=== PATIENT | female | born 1940 ===

== ENCOUNTER → 2021-10-08 13:01 | Outpatient (BNVA) | payer MEDICARE, SELFPAY | PROVIDERS: PCP Internal Medicine; Visit Provider Psychiatry & Neurology Neurology | DX: F03.90 Unspecified dementia, unspecified severity, without behavioral disturbance, psychotic disturbance, mood disturbance, and anxiety (principal); F32.A Depression, unspecified; Z79.899 Other long term (current) drug therapy | CPT/HCPCS: 99212 ==

== ENCOUNTER → 2022-04-03 12:56 | Outpatient (BNVA) | payer MEDICARE, SELFPAY | PROVIDERS: PCP Internal Medicine; Visit Provider Psychiatry & Neurology Neurology | DX: F03.90 Unspecified dementia, unspecified severity, without behavioral disturbance, psychotic disturbance, mood disturbance, and anxiety (principal); F32.A Depression, unspecified | CPT/HCPCS: 99212 ==

== ENCOUNTER → 2022-10-31 11:08 | Outpatient (BNVA) | payer MEDICARE, SELFPAY | PROVIDERS: PCP Internal Medicine; Visit Provider Psychiatry & Neurology Neurology | DX: F03.90 Unspecified dementia, unspecified severity, without behavioral disturbance, psychotic disturbance, mood disturbance, and anxiety (principal); F32.A Depression, unspecified | CPT/HCPCS: 99212 ==

== ENCOUNTER 2023-05-06 09:02 | Outpatient (AMB) | payer MEDICARE, SELFPAY ==
--- NOTE | 2023-05-06 09:16 | MHC.OFFVIS ---
Intake Vital Signs 05/06/23 09:21 Height 5 ft 6 in Weight 137 lb 8 oz BMI 22.2 BP 118/60 Blood Pressure Location Rt brachial Pulse 63 Pulse Source Pulse Oximeter Pulse Oximetry (%) 97 Intake Visit Reasons: 6m follow up-lvm Allergies latex Allergy (Mild, Verified 10/31/22 11:13) Rash Medication List - Last Reconciled 05/06/23 by Nory Marquez MD estradiol 0.5 mg PO DAILY levothyroxine 75 mcg PO DAILY lovastatin 20 mg PO DAILY memantine (Namenda XR) 28 mg PO DAILY 90 days plecanatide (Trulance) 3 mg PO DAILY quetiapine 1/ 2to 1 tab bid orally 2 times a day PRN for agitation sertraline 75 mg (1.5 x 50 mg) PO DAILY 90 days HPI HPI Comments History of Present Illness Details 82-year-old female comes for follow-up of her memory loss dementia and confusion. She is accompanied by her son who helps with history. She is worse now. she is on namenda XR 28 mg qd She does not drive She is independent in all her activities of daily living. Mood has stabilized she lives in an extension portion of her sons house . She is more anxious when she is alone .The auditory hallucinations- hearing music is less now. Her depression is stable. She has history of OCD and she still has a lot of obsessions and compulsions. She rarely goes out to socialize. She walks in the house but does not exercise regularly. She denies any lightheadedness or dizziness. Sleep is good. Paranoid thoughts are better. She can become irritable is sometimes nasty with her care givers. [facility] Medical History Thyroid disease Dementia Anxiety Depression OCD (obsessive compulsive disorder) Cancer Arthritis Family History Father Heart disease Mother Thyroid disease Depression Social History Alcohol intake: never Patient Tobacco Use Status: Never used Tobacco Assessment & Plan Assessment & Plan (1) Dementia: Code(s): F03.90 - Unspecified dementia, unspecified severity, without behavioral disturbance, psychotic disturbance, mood disturbance, and anxiety (2) Depression: Code(s): F32.A - Depression, unspecified Plan Continue memantine XR to 28 mg qd Social activities- participate in senior center activities. Continue sertraline 75 mg qd start quetipaine 25 mg 1/2 tab q 4pm Medications: Discontinued donepezil Discontinued Reason: Patient no longer taking 5 mg PO DAILY 30 tabs 0RF Coding Level of Care Code Est Pt Level 4 (55809) Diagnoses Dementia F03.90 Depression F32.A
[2023-05-06 09:21] VITALS: BP 118/60; PULSE 63; O2SAT 97; BMI 22.2
== END 2023-05-06 10:10 | disposition home or self-care (01) ==
PROVIDERS: Visit Provider Psychiatry & Neurology Neurology
DX: F03.90 Unspecified dementia, unspecified severity, without behavioral disturbance, psychotic disturbance, mood disturbance, and anxiety (principal); F32.A Depression, unspecified
CPT/HCPCS: 99214

== ENCOUNTER → 2023-05-06 09:02 | Outpatient (BNVA) | payer MEDICARE, SELFPAY | PROVIDERS: Visit Provider Psychiatry & Neurology Neurology | DX: F03.90 Unspecified dementia, unspecified severity, without behavioral disturbance, psychotic disturbance, mood disturbance, and anxiety (principal); F32.A Depression, unspecified | CPT/HCPCS: 99212 ==

== ENCOUNTER 2023-06-05 14:01 | Outpatient (AMB) | payer MEDICARE, SELFPAY ==
--- NOTE | 2023-06-05 14:07 | MHC.OFFVIS ---
Intake Vital Signs 06/05/23 14:13 Height 5 ft 6 in Weight 132 lb 4 oz BMI 21.3 BP 125/67 Blood Pressure Location Rt brachial Position Sitting Pulse 68 Pulse Source Pulse Oximeter Pulse Oximetry (%) 98 Oxygen Delivery Method Room Air Intake Visit Reasons: Chronic Neck, Shoulder, and Back Pain [employer] Required: No Accompanied by: Son Allergies latex Allergy (Mild, Verified 06/05/23 14:21) Rash amoxicillin Allergy (Unknown, Verified 06/05/23 14:21) Unknown carbamazepine [From Tegretol] Allergy (Unknown, Verified 06/05/23 14:21) Unknown celecoxib [From Celebrex] Allergy (Unknown, Verified 06/05/23 14:21) Unknown nortriptyline Allergy (Unknown, Verified 06/05/23 14:21) Unknown piroxicam [From Feldene] Allergy (Unknown, Verified 06/05/23 14:21) Unknown sulindac [From Clinoril] Allergy (Unknown, Verified 06/05/23 14:21) Unknown tramadol Allergy (Unknown, Verified 06/05/23 14:21) Unknown Sulfa (Sulfonamide Antibiotics) Allergy (Verified 06/05/23 14:21) Rash HPI Chronic Neck, Shoulder, and Back Pain HPI Details Patient is a pleasant 82 years old female with prior history of vascular dementia, polyarthralgia, right shoulder rotator cuff surgery, osteoarthritis, presents today with chronic pain in her shoulders, neck, low back and lateral hip pain. Denies any recent trauma, injury or falls. Patient is accompanied by her son. She reports her most concerning pain generators today are right shoulder and bilateral lateral hip pain. She has difficulty with overhead reaches, lifting or pulling objects with right hand. Minimal axial low back pain today with lumbar extension reproducing mild to moderate pain. Localized tenderness in the projection of bilateral greater trochanteric bursae areas. Patient attributes her pain due to arthritis for which she has been regularly taking Tylenol and Advil. She denies use of any topical applications, heat or ice therapy, massage or chiropractic therapy. Reports remote PT and cortisone injections in the past with good relief. She cannot recall the name of pain clinic location. Patient was prescribed muscle relaxant but has not taken it yet. Patient is interested to undergo therapeutic injections for her right shoulder and bilateral GTB. Pain affects her daily activities, functioning, sleep and social activities. She lives with her son's family. Denies any fever, weight loss, abdominal or groin pain, weakness, numbness, tingling, bladder or bowel dysfunction or saddle anesthesia. Location Shouders, neck, lower back, lateral hips, feet Duration Chronic pain for many years Characteristics of symptom or complaint Aching, stabbing, dull, spasming Aggravating or associated factors Prolonged sitting, walking, side sleeping, changing positions, movements Relieving factors Tylenol, Advil, marijuana mints Treatment PT, shoulder injections PFSH Medical History (Updated 06/07/23 @ 21:03 by ELI Dunn) Constipation Thyroid disease Dementia Anxiety Depression OCD (obsessive compulsive disorder) Cancer Arthritis Family History Father Heart disease Mother Thyroid disease Depression Social History Alcohol intake: never Patient Tobacco Use Status: Never used Tobacco Review of Systems Const All systems reviewed & are unremarkable except as noted in HPI and below Physical Exam Vital Signs: Last Vital Signs Pulse 68 06/05/23 14:13 BP 125/67 06/05/23 14:13 Pulse Ox 98 06/05/23 14:13 Oxygen Delivery Method Room Air 06/05/23 14:13 BMI result Body Mass Index 21.3 General: Appears afebrile. Alert and oriented. Mood and affect appropriate. Follows and participates in conversation appropriately. Respiratory effort is unlabored. No cough. Able to transition from sit to stand unassisted. Ambulates with bilaterally normal heel strike and toe off. Back/Spine/Pelvis Cervical Spine: loss of normal cervical lordosis, cervical muscular tenderness and No Cervical spine tenderness Thoracic/Lumbar Spine: thoracic and lumbar spine normal to inspection, No Thoracic/lumbar spine scar(s), Lasegue's sign negative, straight leg raise negative bilaterally, No paraspinal muscle tenderness, thoraco-lumbar ROM limited, No thoracic spinal tenderness and No lumbar spinal tenderness Pelvis: no buttock tenderness Extrem General: Yes capillary refill normal, Yes no clubbing, cyanosis or edema and Yes no calf tenderness Right upper extremity: shoulder/upper arm (Pain with overhead reaches) Details: tenderness (anterior shoulder) Location: over the biceps tendon and over the subacromial bursa and crepitus; no swelling, no ecchymosis and no unusual warmth Right lower extremity: hip/thigh Details: normal to inspection and tenderness Location: of the hip Location: over the greater trochanter; no swelling, no ecchymosis and no unusual warmth and knee Details: normal to inspection, tenderness Location: of the medial joint line and of the lateral joint line and crepitus; no swelling Left lower extremity: hip/thigh Details: normal to inspection and tenderness Location: of the hip Location: over the great trochanter; no swelling, no ecchymosis and no unusual warmth and knee Details: normal to inspection, tenderness Location: of the medial joint line and of the lateral joint line and crepitus; no swelling Results Reviewed Results Reviewed: No imaging results are available for review today. Assessment & Plan Assessment & Plan (1) Bilateral knee pain: Code(s): M25.561 - Pain in right knee; M25.562 - Pain in left knee (2) Low back pain: Code(s): M54.50 - Low back pain, unspecified (3) Polyarthralgia: Code(s): M25.50 - Pain in unspecified joint (4) Greater trochanteric bursitis of both hips: Code(s): M70.61 - Trochanteric bursitis, right hip; M70.62 - Trochanteric bursitis, left hip (5) Right shoulder pain: Code(s): M25.511 - Pain in right shoulder Plan Medical release request sent to patient's PCP office for previous imaging of her multiple pain generators to assess degress of arthritis. Schedule Bilateral Therapeutic Greater Trochanteric Bursa injections with local and fluoroscopy. Subsequently will plan for Right subacromial shoulder steroid injection with local and US guidance. Expectations, risks and benefits were reviewed with patient and family. Patient is aware he will be contacted to schedule this procedure. Scripts provided for topical lidocaine and diclofenac gel, side effects and precautions reviewed. All questions were answered and the patient is in agreement of plan. Follow-up after injections and sooner as needed. Medications: New lidocaine 5% 2 patches topical DAILY 15 days 30 ea 1RF pain M25.561 - Pain in right knee, M25.562 - Pain in left knee, M54.50 - Low back pain, unspecified diclofenac sodium 3% 1 appl topical BID 100 grams 3RF pain M25.50 - Pain in unspecified joint Coding Level of Care Code New Pt Level 4 (81153) Diagnoses Bilateral knee pain M25.561; M25.562 Low back pain M54.50 Polyarthralgia M25.50 Greater trochanteric bursitis of both hips M70.61; M70.62 Right shoulder pain M25.511
[2023-06-05 14:13] VITALS: BP 125/67; PULSE 68; O2SAT 98; BMI 21.3
== END 2023-06-05 14:48 | disposition home or self-care (01) ==
PROVIDERS: PCP Internal Medicine; Visit Provider Nurse Practitioner Family
DX: M25.561 Pain in right knee (principal); M25.562 Pain in left knee; M54.50 Low back pain, unspecified; M25.50 Pain in unspecified joint; M70.61 Trochanteric bursitis, right hip; M70.62 Trochanteric bursitis, left hip; M25.511 Pain in right shoulder
CPT/HCPCS: 99204

== ENCOUNTER → 2023-06-05 14:01 | Outpatient (BNVA) | payer MEDICARE, SELFPAY | PROVIDERS: PCP Internal Medicine; Visit Provider Nurse Practitioner Family | DX: M25.561 Pain in right knee (principal); M25.562 Pain in left knee; M54.50 Low back pain, unspecified; M25.50 Pain in unspecified joint; M70.61 Trochanteric bursitis, right hip; M70.62 Trochanteric bursitis, left hip; M25.511 Pain in right shoulder | CPT/HCPCS: 99202 ==